=== PATIENT | male | born 1990 | race Caucasian/White ===

== ENCOUNTER 2021-11-25 12:27 | Emergency (ER) | payer BC ==
[~2021-11-25] VITALS: Ht 177.8 cm; Wt 79.4 kg
[2021-11-25] MEDS ORDERED: ONDANSETRON ODT4 MG PO (15:14)
== END 2021-11-25 16:15 | disposition home or self-care (01) ==
LOC: ED 12:27 → EDBD 12:29 → ED 12:29
DX: R11.2 Nausea with vomiting, unspecified (principal); R19.7 Diarrhea, unspecified
CPT/HCPCS: 96374; 99283-25; J2405; J7030